=== PATIENT | male | born 1980 | race Caucasian/White ===

== ENCOUNTER → 2020-06-09 | Outpatient (CLI) | payer OTHER ==
--- NOTE | 2020-06-10 12:56 | US ---
EXAMINATION TYPE: US kidneys/renal and bladder DATE OF EXAM: 06/09/2020 COMPARISON: NONE CLINICAL HISTORY: R31.9 Hematuria. Hematuria EXAM MEASUREMENTS: Right Kidney: 13.0 x 5.5 x 4.8 cm Left Kidney: 11.6 x 6.5 x 5.1cm Right Kidney: wnl Left Kidney: wnl Bladder: wnl Bilateral Jets seen: Yes There is no evidence for hydronephrosis at this point in time. No nephrolithiasis is seen. No ceci s are identified on images saved. The urinary bladder is adequately distended. Bilateral ureteral j ets are seen. IMPRESSION: Unremarkable study. Source of hematuria not identified. If symptoms persist further inves tigation with CT urogram would be warranted.
== END | disposition home or self-care (01) ==
LOC: RADUSWWP 16:18
PROVIDERS: ATTEND Internal Medicine
DX: R31.9 Hematuria, unspecified (principal)
CPT/HCPCS: 76770

== ENCOUNTER 2021-02-27 09:49 | Day surgery (SDC) | payer OTHER ==
[2021-02-26 12:00] VITALS: BMI 34.7
[~2021-02-27 09:49] MED LIST: LACTATED RINGERS 1,000 ML IV SCH; LIDOCAINE 1% (10MG/ML) FOR IV START INTRADERMA PRN
[2021-02-27 10:26] VITALS: RESP 16; TEMP 98
[2021-02-27] MEDS ORDERED: fentaNYL (PF) 50 MCG/ML 2 ML AMP ONE (11:12)
[2021-02-27] MEDS ORDERED: MIDAZOLAM 2 MG/2 ML VIAL ONE (11:12)
[2021-02-27] MEDS ORDERED: PROPOFOL 10 MG/ML 20 ML VIAL IV ONE (11:12)
[2021-02-27] MEDS ORDERED: LIDOCAINE 1% INJ 10MG/ML (20 ML MDV) ONE (11:12)
--- NOTE | 2021-02-27 11:28 | P.PCN ---
Date of Procedure: 02/27/21 Description of Procedure: BRIEF HISTORY: Patient is a 40-year-old male presenting for outpatient esophagogastroduodenoscopy for evaluation of heartburn. Patient has had symptoms of reflux and heartburn for over a year described as severe heartburn, nocturnal reflux and postprandial cough. Initially did well on omeprazole therapy. Previously he has been on twice a day dosing. Occasional nausea. Symptoms worsened with bending and lifting. Diagnosed with reflux on EGD in 2008.. PROCEDURE PERFORMED: Esophagogastroduodenoscopy with biopsy. PREOPERATIVE DIAGNOSIS: .Heartburn, GERD ESTIMATED BLOOD LOSS: Minimal. IV sedation per anesthesia. PROCEDURE: After informed consent was obtained, the patient was brought into the endoscopy unit. IV sedation was administered by Anesthesia under continuous monitoring. Initially the Olympus GIF-190 video endoscope was inserted into the mouth. Esophagus intubated without any difficulty. It was gradually advanced into the stomach and duodenum and carefully examined. The bulb and the second part of the duodenum appeared normal, with biopsies taken . The scope at this time was withdrawn to the stomach, adequately insufflated with air, and upon careful examination, mucosa of the antrum, body, cardia and the fundus appeared normal, except for some mild punctate erythema in the antrum and body with biopsies taken. The scope was then withdrawn into the esophagus. The GE junction was located at 41 cm from the incisors, with biopsies of the lower esophagus and midesophagus . The esophagus appeared normal. There were no erosions or ulcerations seen and the patient tolerated the procedure well. IMPRESSION: 1. Mild gastritis. 2. Biopsies of the duodenum, antrum and body, lower esophagus and mid esophagus. RECOMMENDATIONS: The findings of this examination were discussed with the patient and his family. Okay to resume diet. Okay to resume medications. Await pathology from biopsies. Continue PPI therapy. Follow up in GI clinic as scheduled.
[2021-02-27 11:45] VITALS: BP 124/91; PULSE 78
== END 2021-02-27 12:03 | disposition home or self-care (01) ==
LOC: ORWHC2ENDO 09:49 → EDBD 10:25 → MERGE 10:25 → ORWHC2ENDO 12:03
PROVIDERS: ATTEND Internal Medicine
DX: K21.9 Gastro-esophageal reflux disease without esophagitis (principal); K29.70 Gastritis, unspecified, without bleeding; R12 Heartburn; I10 Essential (primary) hypertension; R06.02 Shortness of breath; Z86.69 Personal history of other diseases of the nervous system and sense organs; Z79.899 Other long term (current) drug therapy; Z88.0 Allergy status to penicillin; Z91.013 Allergy to seafood; Z91.048 Other nonmedicinal substance allergy status
CPT/HCPCS: 88305; 88342; 43239; J2250; J2001; J3010; J2704